=== PATIENT | male | born 1995 ===

== ENCOUNTER 2025-01-25 20:57 | Emergency (ER) | payer MEDICAID ==
[~2025-01-25] VITALS: Ht 165.1 cm; Wt 56.2 kg
[2025-01-25 21:24] VITALS: TEMP 97.8
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
[2025-01-26] MEDS: ketorolac trometh 30MG/ML vial 30 MG/ML VIAL IM ONE (00:14)
[2025-01-26] MEDS ORDERED: NAPR-56 PO (01:07)
[2025-01-26] MEDS ORDERED: CYCL-920 PO (01:07)
[2025-01-26 01:27] VITALS: BP 118/80; PULSE 66; RESP 16; O2SAT 99
== END 2025-01-26 01:29 | disposition home or self-care (01) ==
LOC: ER 20:59
DX: S13.4XXA Sprain of ligaments of cervical spine, initial encounter (principal); S80.211A Abrasion, right knee, initial encounter; G89.11 Acute pain due to trauma; V43.52XA Car driver injured in collision with other type car in traffic accident, initial encounter; Y93.89 Activity, other specified; Y92.89 Other specified places as the place of occurrence of the external cause; Y99.8 Other external cause status
CPT/HCPCS: 70450; 72125; 73564; 96372; 99285; J1885; L0172